=== PATIENT | male | born 2000 | race Caucasian/White ===

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

== ENCOUNTER 2020-02-05 20:52 | Emergency (ER) | payer BC, OTHER ==
--- OUTSIDE RECORDS SUMMARY | 2020-02-05 21:18 | XMS REPORT | Continuity of Care Document ---
:2000 External Reference #:[id number] Author Name Sherin Woodard DO (transmitted by agent of provider Anne Hinson) Address [address] [place] [address] Care Team Providers Name Role Phone Sherin Wodoard DO - Hospitalist Care Team Information Desktop Publishing Operator Problems Description No Information Available Social History Type Date Description Comments Sex Unknown ETOH Use Denies alcohol use Tobacco Use Start: Unknown Patient has never smoked Smoking Status Reviewed: 11/11/19 Patient has never smoked Allergies, Adverse Reactions, Alerts Description No Known Drug Allergies Medications Active Medications SIG Qnty Indications Ordering Provider Date Amlodipine Besylate 1 by mouth every 90tabs I73.00 Sherin Woodard, 2019 5mg day DO Tablets Cephalexin Take 1 capsule by Unknown 500mg mouth three times Capsules daily for 10 days Immunizations Description No Information Available Vital Signs Date Vital Result Comment 11/11/2019 3:53pm Height 70 inches 5'10" Weight 137.12 lb Heart Rate 58 /min BP Systolic 100 mmHg BP Diastolic 57 mmHg Body Temperature 96.6 F O2 % BldC Oximetry 98 % BMI (Body Mass Index) 19.7 kg/m2 Height Percentile 56 % Weight Percentile 21st Results Description No Information Available Procedures Description No Information Available Medical Devices Description No Information Available Encounters Type Date Location Provider Dx Diagnosis Office Visit 11/11/2019 [facility] Sherin Woodard I73.00 Raynaud's syndrome 3:20p Medicine - Suite DO without gangrene R L03.119 Cellulitis of unspecified part of limb Assessments Date Code Description Provider 11/11/2019 I73.00 Raynaud's syndrome without gangrene Sherin Woodard DO 11/11/2019 L03.119 Cellulitis of unspecified part of limb Sherin Woodard DO Plan of Treatment 11/11/2019 - Sherin Woodard, DOI73.00 Raynaud's syndrome without gangreneNew Medication:Amlodipine Besylate 5 mg - 1 by mouth every dayFollow up:1 [id number] Cellulitis of unspecified part of limb Functional Status Description No Information Available Mental Status Description No Information Available Referrals Description No Information Available
--- NOTE | 2020-02-05 21:19 | ED ---
Skin Complaint - HPI Summary HPI Summary: This pt is a 20 Y/O M presenting to [facility] with a CC of a possible infection in his bilateral feet and hands for the past few weeks. He states that he has a Hx of a previous foot infection but states that the infection has returned and he has had associated pain rated a 4/10 in severity. He states that his toes are discolored which he thought used to be from the cold. He states that the rash is currently streaking up his bilateral legs. He reports that the rash began showing up on his hands in the form of blisters. He states that he has had a fluctuation in his diet and has been suffering from lower weight than usual. He reports that he is sexually active. He denies any recent travel outside of [place], and hiking, and any tick bites. He denies any fevers, chills, headaches , SOB, CP, N/V, and diaphoresis. He states that he does not use any substances such as alcohol, drug, or tobacco use. Medications reviewed. Allergies noted. He states that no one he lives with is also suffering from similar symptoms. - History of Current Complaint Chief Complaint: EDRashSkinAbscess Time Seen by Provider: 02/05/20 21:06 Stated Complaint: PAIN IN BOTH FEET PER PT Hx Obtained From: Patient Onset/Duration: Started Weeks Ago, Still Present, Worse Since - onset Timing: Constant Onset Severity: Mild Current Severity: Moderate Pain Intensity: 4 Pain Scale Used: 0-10 Numeric Skin Location: Hand - bilateral, Leg - streaks from foot, Foot - bilateral Character: Pain, Redness Aggravating Symptom(s): Other: - cold Alleviating Symptom(s): Nothing Associated Signs & Symptoms: Negative - fevers, chills, headaches, SOB, CP, N/V , and diaphoresis, Rash, Red Streaks, Joint Swelling - Allergy/Home Medications Allergies/Adverse Reactions: Allergies Allergy/AdvReac Type Severity Reaction Status Date / Time No Known Allergies Allergy Verified 02/05/20 21:31 Home Medications: Home Medications Cephalexin CAP* [Keflex CAP*] 500 mg PO TID 7 Days #21 cap 02/05/20 [Rx] PMH/Surg Hx/FS Hx/Imm Hx Previously Healthy: Yes Endocrine/Hematology History: Denies: Hx Anticoagulant Therapy Cardiovascular History: Denies: Hx Hypertension Respiratory History: Denies: Hx Asthma GI History: Denies: Hx Diverticulosis - Cancer History Hx Chemotherapy: No Hx Radiation Therapy: No - Surgical History Surgical History: None - Immunization History Immunizations Up to Date: Yes Infectious Disease History: No Infectious Disease History: Denies: Traveled Outside the [place] in Last 30 Days - Family History Known Family History: Negative: Hypertension, Renal Disease - Social History Occupation: Student Lives: With Family Alcohol Use: None Hx Substance Use: No Substance Use Type: Reports: None Hx Tobacco Use: No Smoking Status (MU): Never Smoked Tobacco Review of Systems Negative: Fever, Chills Negative: Chest Pain Negative: Shortness Of Breath, Cough Negative: Abdominal Pain, Vomiting, Diarrhea, Nausea Negative: burning, dysuria, discharge, frequency, flank pain Negative: Arthralgia Positive: Rash Negative: Headache, Weakness All Other Systems Reviewed And Are Negative: Yes Physical Exam - Summary Physical Exam Summary: Constitutional: Well-developed, Well-nourished, Alert. (-) Distressed Skin: Warm, Dry, Multiple popular lesions on bilateral palms, and feet not on the soles. R foot has erythema to the toes and steaking redness proximally. Afflicted areas are red and warm without tenderness HENT: Normocephalic; Atraumatic Eyes: Conjunctiva normal Neck: Musculoskeletal ROM normal neck. (-) JVD, (-) Stridor, (-) Tracheal deviation Cardio: Rhythm regular, rate normal, Heart sounds normal; Intact distal pulses; Radial pulses are 2+ and symmetric. (-) Murmur Pulmonary/Chest wall: Effort normal. (-) Respiratory distress, (-) Wheezes, (-) Rales Abd: Soft, (-) tenderness, (-) Distension, (-) Guarding, (-) Rebound Musculoskeletal: (-) Edema Lymph: (-) Cervical adenopathy Neuro: Alert, Oriented x3 Psych: Mood and affect Normal Triage Information Reviewed: Yes Vital Signs On Initial Exam: Initial Vitals Temp Pulse Resp BP Pulse Ox 97.3 F 60 16 111/65 98 02/05/20 20:55 02/05/20 20:55 02/05/20 20:55 02/05/20 20:55 02/05/20 20:55 Vital Signs Reviewed: Yes Procedures - Sedation Patient Received Moderate/Deep Sedation with Procedure: No Diagnostics - Vital Signs Vital Signs Temp Pulse Resp BP Pulse Ox 02/05/20 20:55 97.3 F 60 16 111/65 98 - Laboratory Result Diagrams: 02/05/20 21:24 02/05/20 21:24 Lab Statement: Any lab studies that have been ordered have been reviewed, and results considered in the medical decision making process. Re-Evaluation - Re-Evaluation First Eval Re-Evaluation Time: 22:01 Change: Improved Comment: Pt's blood test were aqcuried and the pt is agreeable to a discharge order. Course/Dx - Course Course Of Treatment: Patient is here with a rash to his bilateral feet and hands. Patient has papular rash to the bilateral palms. Patient does not have evidence of hich-aldi-anh-mouth disease. Patient denies any one else in his family similar symptoms or seeing bugs crawl on him. Patient has no travel or camping history making it unlikely for [place] and fever. Patient is sexually active and was tested for syphilis. Patient was treated empirically given his rash. Patient did respond antibiotics in the past so patient was started on Keflex. Patient was given [facility] for follow-up and given a PCP referral as he needed someone to follow him up as his symptoms were atypical. Patient also was told he is worsening LFTs need to get that rechecked. - Diagnoses Provider Diagnoses: Elevated LFTs, Rash Discharge ED - Sign-Out/Discharge Documenting (check all that apply): Patient Departure - discharge - Discharge Plan Condition: Stable Disposition: HOME Prescriptions: Cephalexin CAP* [Keflex CAP*] 500 mg PO TID 7 Days #21 cap Patient Education Materials: Acute Rash (ED) Referrals: [facility] [Outside] [facility] [place] [facility] [Outside] No Primary Care Phys,NOPCP [Primary Care Provider] - Additional Instructions: Please take your antibiotics as prescribed Please follow up with liliana daniels in 2 days Please call the referral number to set up a primary care doctor. Your liver enzymes are elevated and you need to be further evaluated for this. Please return if you have worsening or concerning symptoms - Billing Disposition and Condition Condition: STABLE Disposition: Home - Attestation Statements Document Initiated by Scribe: Yes Documenting Scribe: Leonardo Meza Provider For Whom Valerio is Documenting (Include Credential): Denis Baptiste MD Scribe Attestation: Leonardo Rosario, scribed for Denis Baptiste MD on 02/06/20 at 0501. Scribe Documentation Reviewed: Yes Provider Attestation: The documentation as recorded by the scribeLeonardo accurately reflects the service I personally performed and the decisions made by me, Denis Baptiste MD Status of Scribe Document: Viewed
[2020-02-05 21:33] LABS: ABS Eosinophils 0.2 10^3/ul (0-0.6); ABS Lymphocytes 1.8 10^3/ul (1.0-4.8); ABS Monocytes 0.3 10^3/ul (0-0.8); ABS Neutrophils 1.8 10^3/ul (1.5-7.7); Eosinophil % 4.1 %; Hematocrit 39 % (42-52); Hemoglobin 13.2 g/dL (14.0-18.0); Lymphocyte % 43.2 %; Mean Corpuscular HGB Conc 34 g/dL (31-36); Mean Corpuscular Hemoglobin 30 pg (27-31); Mean Corpuscular Volume 89 fL (80-94); Mean Platelet Volume 7.8 fL (7.4-10.4); Nucleated Red Blood Cells % 0.1; Platelet Count 166 10^3/uL (150-450); Red Blood Count 4.37 10^6 /uL (4.18-5.48); Red Cell Distribution Width 15 % (10-15); White Blood Count 4.1 10^3/uL (3.5-10.8)
[2020-02-05 21:48] LABS: ALT 82 U/L (7-52); AST 50 U/L (13-39); Albumin 4.9 g/dL (3.2-5.2); Albumin/Globulin Ratio 1.8 (1-3); Alkaline Phosphatase 92 U/L (34-104); Anion Gap 6 mmol/L (2-11); BUN/Creatinine Ratio 22.5 (8-20); Blood Urea Nitrogen 18 mg/dL (6-24); C Reactive Protein < 1.00 mg/L (<8.01); CO2 Carbon Dioxide 30 mmol/L (22-32); Calcium 10.1 mg/dL (8.6-10.3); Chloride 103 mmol/L (101-111); EGFR African American 149.1 (>60); EGFR Non-African American 123.2 (>60); Globulin 2.8 g/dL (2-4); Glucose 68 mg/dL (70-100); Sodium 139 mmol/L (135-145); Total Protein 7.7 g/dL (6.4-8.9)
[2020-02-05] MEDS ORDERED: Penicillin G Benzathine 2.4MU* 2,400,000 UNITS/4 ML SYR IM ONE (21:54)
[2020-02-05 22:44] VITALS: BP 112/62
== END 2020-02-05 22:43 | disposition home or self-care (01) ==
LOC: ED 20:52
DX: R21 Rash and other nonspecific skin eruption (principal); R79.89 Other specified abnormal findings of blood chemistry
CPT/HCPCS: 36415; 80053; 85025; 86140; 86780; 96372; 99283; J0561